=== PATIENT | female | born 1985 | race Caucasian/White ===

== ENCOUNTER 2021-12-04 10:55 | Emergency (ER) | payer OTHER, SELFPAY ==
[2021-12-04 11:10] VITALS: BP 119/74; PULSE 82; RESP 16; TEMP 36.6; O2SAT 100
--- NOTE | 2021-12-04 11:25 | ED.ABDPAIN ---
HPI - Abdominal Pain General Chief Complaint: Abdominal Pain Stated Complaint: right side abd pain Time Seen by Provider: 12/04/21 11:30 Source: patient and RN notes reviewed Mode of arrival: ambulatory Limitations: no limitations History of Present Illness HPI narrative: 36-year-old female presents with concern fo right lower quadrant abdominal pain. Reports the pain started on Wednesday and has been progressively worsening. Reports she thought throughout the week it could be gas, she reports she had some loose stool throughout the week. She reports pain is exacerbated by going from a sitting to a lying position, walking, when she sits on the toilet. She denies vomiting, dysuria, frequency, urgency, hematuria. She denies fever, body aches, chills, sweats. She has had a tubal ligation. She denies any other abdominal surgeries or procedures. MD elicited complaint: abdominal pain Related Data Home Medications Medication Instructions Recorded Confirmed bupropion HCl 150 mg tablet,12 hr 1 tablet PO BID 12/04/21 12/04/21 sustained-release cholecalciferol (vitamin D3) 25 2 cap PO DAILY 12/04/21 12/04/21 mcg (1,000 unit) capsule lisdexamfetamine 30 mg capsule 1 cap PO DAILY 12/04/21 12/04/21 (Vyvanse) Allergies Allergy/AdvReac Type Severity Reaction Status Date / Time No Known Allergies Allergy Verified 12/04/21 11:19 Review of Systems Review of Systems: CONSTITUTIONAL: Denies malaise, chills, sweats, or fever. ENT: Denies rhinorrhea, congestion, sinus pain, otalgia or sore throat. CARDIOVASCULAR: Denies chest pain, palpitations, or edema. RESPIRATORY: Denies cough or dyspnea. GASTROINTESTINAL: Reports right lower quadrant abdominal pain, loose stool. Denies nausea, vomiting, bloody, or mucous stools. GENITOURINARY: Denies dysuria or hematuria. MUSCULOSKELETAL: Denies myalgia. NEUROLOGIC: Denies headache. All systems reviewed & are unremarkable except as noted in HPI and below PMFSH Comments At time of signature, agree with nursing past medical, surgical, social and family history. There is no relevant family history pertinent to the presenting complaint Exam Narrative: GENERAL: Well-appearing, well-nourished, and in no acute distress. HEAD: Normocephalic, atraumatic. EYES: PERRLA, conjunctivae clear, and EOMI. ENT: Nares clear, turbinates pink, no rhinorrhea or epistaxis. Mucous membranes moist. Oropharynx without edema, erythema, or lesions. Tonsils not enlarged and without exudate. NECK: Supple. No lymphadenopathy CHEST: Speaks in full sentences. No respiratory distress. HEART: Regular rate and rhythm. ABDOMEN: Soft, obese, nondistended. Right lower quadrant tenderness, rebound tenderness noted. No guarding, or rigidity. No pulsatilla masses. Bowel sounds present in all four quadrants. No organomegaly. Negative Dooley?s sign. No periumbilical tenderness. No Supra public tenderness or distension. Good femoral pulses bilaterally. No hernia noted. Stretch rojas noted to the abdomen SKIN: Warm, dry, no rash. NEURO: Alert and oriented x3. PSYCH: Normal mood and affect Course Course Emergency Course: Patient is aware of, understands and agrees to be transferred to the emergency department. EMS transfer offered, patient refuses. Patient agrees to proceed directly to the emergency department. Portions of this record may have been created with voice recognition software Level of Care: Express Care Visit Vital Signs Vital signs: Reviewed. Transfer Transfered to: [facility] Transportation: Other (Private vehicle, EMS refused) Transfer rationale: Right lower abdominal pain, rebound tenderness Accepting physician: Don MDM - Abdominal Pain MDM Narrative Medical decision making narrative: Exam findings show for further evaluation emergency department; patient is non-toxic appearing and is in no distress. Differential Diagnosis Differential diagnosis: Likely abdominal pain, acute appendicitis, con
== END 2021-12-04 11:45 | disposition short-term general hospital (02) ==
PROVIDERS: Emergency Provider Nurse Practitioner
DX: R10.813 Right lower quadrant abdominal tenderness (principal)
CPT/HCPCS: 81003; 99202; G0463

== ENCOUNTER 2021-12-04 12:06 | Emergency (ER) | payer OTHER, SELFPAY ==
--- NOTE | ~2021-12-04 | US_ITS ---
EXAMINATION: US transvaginal DATE: 12/04/2021 16:30 INDICATION: Right lower quadrant pain and pelvic pain Comparison:No prior studies for comparison. TECHNIQUE: Multiple transabdominal and endovaginal sonographic images of the pelvis performed. FINDINGS: The uterus measures 9.4 x 5.8 x 4.9 cm. The endometrial complex measures 8.7 cm. The right ovary measures 2.4 x 1.9 x 1.5 cm and the left ovary measures 2.3 x 1.3 x 1.3 cm. There ar e small follicles in each ovary. Normal doppler signal in both ovaries. There is no free fluid in the pelvis. There are no abnormal masses seen on either side. IMPRESSION: 1. Endometrial thickening measuring 1.7 cm. Reviewed, dictated and finalized at location [facility].
--- NOTE | ~2021-12-04 | CT_ITS ---
EXAMINATION: CT abdomen pelvis wo con DATE: 12/04/2021 15:14 INDICATION: Right upper quadrant abdominal pain TECHNIQUE: Computed tomography (CT) of the abdomen and pelvis was performed without intravenous contr ast. Automated exposure control and iterative reconstruction technique were employed. Exam dose: 114 6.05 mGy-cm total exam DLP. COMPARISON: None. FINDINGS: Minimal discoid atelectasis or scarring in the medial right lower lobe base. The lung base s are clear of infiltrate or consolidation. No pleural effusion. Normal heart size. No pericardial effusion. Moderately large sliding hiatal hernia. The liver, gallbladder, bile ducts, spleen, pancreas, pancreatic duct, and adrenal glands and kidneys are unremarkable on this limited noncontrast examination. There is minimal atherosclerotic calcification and normal caliber of the abdominal aorta. No intraper itoneal or retroperitoneal or pelvic mass lesion or adenopathy or ascites. The uterus, adnexal areas and urinary bladder are unremarkable. Normal appendix. No bowel obstruction or intraperitoneal free air. Left parasagittal ventral abdominal wall scar is noted. Small fat-containing umbilical hernia Status post posterior and interbody surgical spinal fusion at L4-5. IMPRESSION: Moderately large sliding hiatal hernia Normal appendix No gallbladder wall thickening or pericholecystic fluid or fat stranding is detected. Reviewed, dictated and finalized at [facility]. Reviewed, dictated and finalized at location [facility]. IMPRESSION: Moderately large sliding hiatal hernia Normal appendix No gallbladder wall thickening or pericholecystic fluid or fat stranding is det ected.
--- NOTE | ~2021-12-04 | XR_ITS ---
XR abdomen/kub 1V DATE: 12/04/2021 15:23 INDICATION: Right upper quadrant abdominal pain TECHNIQUE: 2 AP views COMPARISON: 12/14/[address] abdomen pelvis FINDINGS: Status post posterior and anterior surgical fusion at L4-5. No evidence of bowel obstructio n. The psoas shadows are intact. No visceromegaly is evident. IMPRESSION: No significant abnormality Reviewed, dictated and finalized at [facility]. Reviewed, dictated and finalized at location [facility]. IMPRESSION: No significant abnormality
[2021-12-04 12:07] VITALS: BP 130/84; PULSE 89; RESP 16; TEMP 36.4; O2SAT 99
--- NOTE | 2021-12-04 12:11 | PC.NURSE ---
UA done at urgent care per pt.
[2021-12-04 12:17] LABS: Basophils Percent Auto 0.3 % (0.2-1.2); Eosinophils Absolute Auto 0.1 K/mm3 (0-0.3); Eosinophils Percent Auto 1.1 % (0-4.4); Hematocrit 43.4 % (37.0-47.0); Hemoglobin 14.1 g/dL (12.0-15.0); Immature Granulocyte Absolute 0.02 K/mm3 (0.00-0.031); Immature Granulocyte Percent A 0.2 % (0-0.5); Lymphocytes Absolute Auto 2.49 K/mm3 (0.9-3.2); Lymphocytes Percent Auto 27.9 % (18.3-44.2); Mean Corpuscular HGB Conc 32.5 g/dl (32-36); Mean Corpuscular Hemoglobin 29.2 pg (26-34); Mean Corpuscular Volume 89.9 fl (80-100); Mean Platelet Volume 9.9 fl (7.4-10.4); Monocytes Absolute Auto 0.5 K/mm3 (0.1-0.6); Monocytes Percent Auto 5.6 % (2.6-8.5); Neutrophils Absolute Auto 5.8 K/mm3 (1.3-6.7); Neutrophils Percent Auto 64.9 % (45.5-73.1); Platelet Count Result 241 k/mm3 (150-375); Red Blood Count 4.83 M/mm3 (4.2-5.4); Red Cell Distribution Width 12.4 % (11.5-14.5); White Blood Count 8.9 K/mm3 (4.5-10.0)
[2021-12-04 12:28] LABS: Alanine Aminotransferase 20 U/L (6-35); Albumin Level 4.1 g/dL (3.5-5.1); Alkaline Phosphatase 64 U/L (38-126); Anion Gap 5 mmol/L (8-16); Aspartate Amino Transferase 20 U/L (14-36); Bilirubin,Total 0.5 mg/dL (0.2-1.3); Blood Urea Nitrogen 11 mg/dL (7-17); Calcium 8.5 mg/dL (8.4-10.2); Carbon Dioxide 26 mmol/L (22-30); Chloride 106 mmol/L (98-107); Estimated CRCL calculation 106 ml/min; Estimated Glomerular Filt Rate > 60; Glucose 93 mg/dL (65-110); Lipase 94 U/L (23-300); Potassium 3.9 mmol/L (3.4-5.0); Sodium 137 mmol/L (137-145)
[2021-12-04 15:00] VITALS: PULSE 84; RESP 14; O2SAT 98
[2021-12-04 15:30] VITALS: BP 115/88; PULSE 82; RESP 14; O2SAT 98
[2021-12-04 15:47] LABS: Appearance Urine Cloudy (Clear); Bilirubin Urine Negative (Negative); Blood Urine Negative (Negative); Color Urine Yellow (Yellow); Glucose Urine UA Negative (Negative); Ketones Urine Negative (Negative); Leukocyte Esterase Ur Negative LEU/UL (Negative); Nitrate Urine Negative (Negative); Protein Urine Negative (Negative); Specific Grav Ur >= 1.030 (1.001-1.035); Urobilinogen Urine 0.2 mg/dL (<2.0); pH Urine 5.5 (5.0-9.0)
[2021-12-04] MEDS: SODIUM CHLORIDE 0.9% IV 1,000 ML 999 ML IV CONT (15:50)
[2021-12-04 15:54] LABS: Bacteria Urine Trace /hpf; Mucus Urine Rare /lpf; RBC Urine 0-2 /hpf (0-2); Squamous Epithelial Cell Urine Many /hpf (Few); WBC Urine 0-3 /hpf
[2021-12-04 16:08] LABS: Add Urine Microscopic? YES
[2021-12-04 16:30] VITALS: BP 125/64; PULSE 82; RESP 14; O2SAT 97
[2021-12-04] MEDS: KETOROLAC 30 MG/ML VIAL (*BKC) IV PUSH (16:37)
[2021-12-04 17:10] VITALS: BP 120/87; PULSE 65; RESP 14; O2SAT 97
--- NOTE | 2021-12-04 18:54 | ED.ABDPAIN ---
HPI - Abdominal Pain General Chief Complaint: Abdominal Pain Stated Complaint: from UC, RLQ pain Time Seen by Provider: 12/04/21 14:11 Source: patient Mode of arrival: ambulatory Limitations: no limitations History of Present Illness HPI narrative: 36-year-old female sent today from urgent care with complaints of intermittent right lower quadrant pain for the past 3 days. Patient denies any previous abdominal surgeries. Patient denies nausea or vomiting. Patient denies fevers. Patient denies any history of ovarian cysts. Related Data Home Medications Medication Instructions Recorded Confirmed bupropion HCl 150 mg tablet,12 hr 1 tablet PO BID 12/04/21 12/04/21 sustained-release cholecalciferol (vitamin D3) 25 2 cap PO DAILY 12/04/21 12/04/21 mcg (1,000 unit) capsule lisdexamfetamine 30 mg capsule 1 cap PO DAILY 12/04/21 12/04/21 (Vyvanse) Allergies Allergy/AdvReac Type Severity Reaction Status Date / Time No Known Allergies Allergy Verified 12/04/21 15:03 Review of Systems Review of Systems: CONSTITUTIONAL: Denies fever, chills, or sweats. EYES: Denies visual changes, redness, or discharge. ENT: Denies rhinorrhea, congestion, sore throat, or otalgia. CARDIOVASCULAR: Denies chest pain, palpitations, or edema. RESPIRATORY: Denies cough or dyspnea. GASTROINTESTINAL: Intermittent right lower quadrant pain. Denies nausea, vomiting, or diarrhea. GENITOURINARY: Denies dysuria or hematuria. SKIN: Denies rash or itching. MUSCULOSKELETAL: Denies back pain, joint pain, or myalgia. NEUROLOGIC: Denies headache, numbness, dizziness, or weakness. PSYCHIATRIC: Denies anxiety or depression. Exam Narrative: GENERAL: Well-appearing, well-nourished, and in no acute distress. HEAD: Normocephalic, atraumatic. EYES: PERRLA and EOMI. NECK: Supple. No adenopathy or masses. No carotid bruits or JVD CHEST: Clear to auscultation. No respiratory distress. No wheezes rales or rhonchi HEART: Regular rate and rhythm. No murmur heard. Normal peripheral pulses. ABDOMEN: Soft, nontender, nondistended, normal active bowel sounds. EXTREMITIES: Normal range of motion. No edema. SKIN: Warm, dry, no rash. NEURO: No focal deficits. Alert and oriented x3. PSYCH: Normal mood and affect. Course Course Emergency Course: Patient with minimal improvement after IV fluids and medication. Results discussed with patient. Patient discharged home with plan follow-up with primary or return with new or worsening symptoms. Vital Signs Vital signs: Vital Signs Temperature 36.4 C 12/04/21 12:07 Pulse Rate 89 12/04/21 12:07 Respiratory Rate 16 12/04/21 12:07 Blood Pressure 130/84 12/04/21 12:07 Pulse Oximetry 99 12/04/21 12:07 Oxygen Delivery Room Air 12/04/21 12:07 Temperature 36.4 C 12/04/21 12:07 Pulse Rate 65 12/04/21 17:10 Respiratory Rate 14 12/04/21 17:10 Blood Pressure 120/87 12/04/21 17:10 Pulse Oximetry 97 12/04/21 17:10 Oxygen Delivery Room Air 12/04/21 12:07 MDM - Abdominal Pain MDM Narrative Medical decision making narrative: 36-year-old female HPI as noted. WBCs 8.9 hemoglobin 14.1, sodium 137, potassium 3.9, BUN 11, GFR greater than 60. Urine without signs of infection, transvaginal ultrasound shows no acute process. Abdominal CT shows no acute process, no appendicitis. Patient discharged home instructed to follow-up with primary for further evaluation and management. Also instructed to return with any new or worsening symptoms. Lab Data Result diagrams: 12/04/21 12:12 12/04/21 12:12 Labs: Lab Results 12/04/21 12/04/21 12/04/21 Range/Units 12:12 12:12 15:37 WBC 8.9 (4.5-10.0) K/mm3 RBC 4.83 (4.2-5.4) M/mm3 Hgb 14.1 (12.0-15.0) g/dL Hct 43.4 (37.0-47.0) % MCV 89.9 (80-100) fl MCH 29.2 (26-34) pg MCHC 32.5 (32-36) g/dl RDW 12.4 (11.5-14.5) % Plt Count 241 (150-375) k/mm3 MPV 9.9 (7.4-1
== END 2021-12-04 17:10 | disposition home or self-care (01) ==
PROVIDERS: Emergency Medicine; Emergency Provider Nurse Practitioner Family
DX: R10.31 Right lower quadrant pain (principal)
CPT/HCPCS: 36415; 74018; 74176; 76830; 80053; 81001; 81025; 83690; 85025; 96361; 96374; 99284; J1885; J7030

== ENCOUNTER 2023-03-19 13:41 | Emergency (ER) | payer OTHER, SELFPAY ==
[2023-03-19 13:53] VITALS: BP 112/72; PULSE 84; RESP 18; TEMP 36.2; O2SAT 98
--- NOTE | 2023-03-19 14:24 | ED.URI ---
HPI - URI/Sore Throat General Chief Complaint: Upper Respiratory Infection Stated Complaint: Sore Throat Time Seen by Provider: 03/19/23 14:24 Source: patient, RN notes reviewed and old records reviewed Mode of arrival: ambulatory Limitations: no limitations History of Present Illness HPI Narrative: 37-year-old female presents to the [facility] with complaints of a sore throat x 3 days. To can at home COVID test which she reports negative. Confirmed for strep and [id number]. Reports possible blisters posterior pharynx Onset (ago): day(s) (3) Related Data Home Medications Medication Instructions Recorded Confirmed cholecalciferol (vitamin D3) 25 2 cap PO DAILY 12/04/21 03/19/23 mcg (1,000 unit) capsule Allergies Allergy/AdvReac Type Severity Reaction Status Date / Time No Known Allergies Allergy Verified 11/30/22 07:40 Review of Systems Review of Systems: All systems reviewed & are unremarkable except as noted in HPI and below Constitutional: Constitutional: Reports no additional constitutional complaints Eyes: Eyes: Reports no additional eye complaints ENT: Reports as per HPI and Reports sore throat Cardiovascular: Cardiovascular: Reports no additional cardiovascular complaints, Denies chest pain and Denies dyspnea Respiratory: Respiratory: Reports no additional respiratory complaints, Denies chest congestion, Denies cough and Denies dyspnea Gastrointestinal: Gastrointestinal: Reports no additional gastrointestinal complaints, Denies abdominal pain, Denies nausea and Denies vomiting Musculoskeletal: Musculoskeletal: Reports no additional musculoskeletal complaints Integumentary/Breasts: Skin/Breast: Reports system reviewed and no additional complaints, except as docu Neurologic: Reports system reviewed and no additional complaints, except as documented Psychiatric: Psychiatric: Reports no additional psychiatric complaints Allergic/Immunologic: Allergic/Immunologic: Reports no additional allergic/immunologic complaints [facility]LY [facility] Past Medical History Medical History BMI 38.0-38.9,adult Need for lipid screening Surgical History Surgical History (Updated 11/30/22 @ 08:11 by Viki Alberto) History of loop electrical excision procedure (LEEP) History of tubal ligation Social History Social History Smoking status: Former smoker Alcohol intake: current Substance use: never Lack of Transportation: No Lack of Food: Never True Current Housing: I Have Housing Concerned About Future Housing: No Difficulty Paying Gas/Electric Bills: No Difficulty Paying for Meds: No Currently Unemployed: No Education: High School Diploma/GED Difficulty w/ Childcare or Family Care: No Comments At the time of my signature, I reviewed and agree with the nursing past medical, surgical, social, and family history. There is no relevant family history pertinent to the patient complaint. Exam Const: General: cooperative, healthy appearing, comfortable, no acute distress, well developed, alert and well nourished Nutritional Appearance: well nourished Orientation/consciousness: patient oriented x3 Limitations: no limitations HENMT: Head: normal to inspection Ears: hearing grossly normal bilaterally, external ears normal, TM's normal bilaterally, EAC's normal and mastoids normal Face/Nose/Sinus: Normal external nose present, Normal nares present, Normal nasal mucous membranes and turbinates present, normal facial exam and face symmetric Face and sinus: normal facial exam and face symmetric Mouth: Yes Normal oral and palatal mucosa present, Yes lip normal and Yes moist mucous membranes Throat: posterior oropharynx normal and uvula midline Eyes: General: appearance normal, both eyes and all related structures Alignment and Position: alignment normal Periorbital: periorbital findings normal
== END 2023-03-19 14:45 | disposition home or self-care (01) ==
PROVIDERS: Emergency Provider Nurse Practitioner; PCP Family Medicine
DX: J02.9 Acute pharyngitis, unspecified (principal); Z87.891 Personal history of nicotine dependence
CPT/HCPCS: 87081; 87880; 99213; G0463

== ENCOUNTER 2023-09-11 07:54 | Outpatient (CLI) | payer OTHER, SELFPAY ==
[2023-09-11 09:01] LABS: Anion Gap 4 mmol/L (8-16); Blood Urea Nitrogen 14 mg/dL (7-17); Carbon Dioxide 29 mmol/L (22-30); Chloride 104 mmol/L (98-107); Estimated Glomerular Filt Rate > 60; Glucose 90 mg/dL (65-110); Sodium 137 mmol/L (137-145)
== END 2023-09-11 07:55 | disposition home or self-care (01) ==
LOC: ANHLAB 07:56
PROVIDERS: PCP Family Medicine; Visit Provider Physician Assistant Medical
DX: E83.51 Hypocalcemia (principal); R63.5 Abnormal weight gain; Z68.41 Body mass index [BMI] 40.0-44.9, adult
CPT/HCPCS: 36415; 80048; 84443

== ENCOUNTER 2023-09-14 14:05 | Emergency (ER) | payer OTHER, SELFPAY ==
--- NOTE | ~2023-09-14 | CT_ITS ---
. EXAMINATION: CT abdomen pelvis wo con DATE: 09/14/2023 15:59 INDICATION: Low back pain radiating to right flank. Right hip and lower extremity pain. TECHNIQUE: Computed tomography (CT) of the abdomen and pelvis was performed without intravenous contr ast. Automated exposure control and iterative reconstruction technique were employed. Exam dose: 132 6.06 mGy-cm total exam DLP. COMPARISON: 12/03/2021 CT abdomen pelvis FINDINGS: Chronic mild discoid atelectasis or scarring in the medial right lung base adjacent to the large sliding hiatal hernia. The lung bases are otherwise clear. Normal heart size. No pericardial or pleural effusion. The liver, gallbladder, bile ducts, pancreas, pancreatic duct, spleen, and adrenal glands and kidneys appear unremarkable on this limited noncontrast examination. No urinary tract calculus or hydrourete ronephrosis. The urinary bladder, uterus and adnexal areas are unremarkable. Normal caliber and minimal atherosclerotic calcification of the abdominal aorta. No intraperitoneal o r retroperitoneal or pelvic mass lesion or adenopathy or ascites. Normal appendix. No bowel obstruction, bowel wall thickening, pneumatosis or intraperitoneal free air . There is a linear surgical scar in the left parasagittal lower anterior abdominal wall. Small fat-con taining umbilical hernia. Status post anterior, interbody and posterior surgical fusion at L4-5. No hardware fracture or displa cement is evident. No suspicious osteolytic or osteoblastic lesions. IMPRESSION: Status post anterior, interbody and posterior surgical fusion at L5-S1 Normal appendix Large sliding hiatal hernia Reviewed, dictated and finalized at [facility]. Reviewed, dictated and finalized at location L. IMPRESSION: Status post anterior, interbody and posterior surgical fusion at L 5-S1 Normal appendix Large sliding hiatal hernia
[2023-09-14 14:36] VITALS: BP 115/65; PULSE 104; RESP 20; TEMP 36.4; O2SAT 98
--- NOTE | 2023-09-14 14:42 | ED.BACK ---
HPI - Back Pain/Injury General Chief Complaint: Back Pain/Injury <RYAN Puente Last Filed: 09/16/23 09:15> Stated Complaint: lower R. back pain <RYAN Puente Last Filed: 09/16/23 09:15> Time Seen by Provider: 09/14/23 14:42 <RYAN Puente Last Filed: 09/16/23 09:15> Focused HPI: Patient is a 37 y/o female, with PMH of L4-5 fusion 5 years ago and kidney stones, who presents to the ED with c/o lower back pain. Patient reports having pain for last few days. 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 Pain is worse with movement in certain positions. Pain radiates from her lower back into her right flank region, into right hip region, intermittently down her right lower extremity. She has been taking naproxen and resting without improvement. She has not taken anything for pain today. Denies numbness/tingling, saddle anesthesia, incontinence, abdominal pain, N/V. GENERAL: Well-appearing, morbidly obese with BMI of 41.5, and in no acute distress. HEAD: Normocephalic, atraumatic. CHEST: Clear to auscultation. ?No respiratory distress. HEART: Regular rate and rhythm.? MSK: Positive midline spinal tenderness throughout lumbar region, extending into right paraspinal musculature. No palpable deformities or bony step-offs. ABD: No significant tenderness. No CVA tenderness to percussion. NEURO: ?Alert and oriented x3. Patient screened in triage and initial orders placed.? ?Additional care and disposition to be based upon?diagnostic testing and treatment. <RYAN Puente Last Filed: 09/16/23 09:15> Source: patient <RYAN Puente Last Filed: 09/16/23 09:15> Mode of arrival: ambulatory <RYAN Puente Last Filed: 09/16/23 09:15> Limitations: no limitations <Jenny Luevano PA-C - Last Filed: 09/16/23 09:15> Related Data Allergies/Adverse Reactions: Allergies Allergy/AdvReac Type Severity Reaction Status Date / Time No Known Allergies Allergy Verified 09/14/23 14:44 <Jenny Luevano PA-C - Last Filed: 09/16/23 09:15> Review of Systems Review of Systems: All systems reviewed & are unremarkable except as noted in HPI and below <Miguel Farmer MD - Last Filed: 09/16/23 21:38> Exam Narrative: APPEARANCE: Well appearing, no pain, no distress, well-nourished. HEAD: normocephalic, atraumatic. EYES: PERRLA/EOMI, conjunctivae clear. NOSE: Normal no drainage EARS:TMS clear with good light reflex. THROAT: Pharynx clear, no exudate. NECK: Supple. No adenopathy, no masses. RESPIRATORY: Airway patent, respirations nonlabored. Clear to auscultation bilaterally, no rales, rhonchi, wheezing. CARDIOVASCULAR: Regular rate and rhythm without murmurs rubs or gallops. ABDOMINAL: Soft, nontender, nondistended, normal bowel sounds MUSCULOSKELETAL: Moves all extremities. Strength/ROM intact, No edema, No calf tenderness. NEURO: Alert. Cranial nerves II through XII intact. Good gait. Good coordination SKIN: Warm, dry. Normal Color PSYCHIATRIC: Normal affect/mood. <Miguel Farmer MD - Last Filed: 09/16/23 21:38> Course Course Emergency Course: Patient did feel improved with treatment. <Miguel Farmer MD - Last Filed: 09/16/23 21:38> Vital Signs Vital signs: Vital Signs Temperature 97.6 F 09/14/23 14:36 Pulse Rate 104 H 09/14/23 14:36 Respiratory Rate 20 09/14/23 14:36 Blood Pressure 115/65 09/14/23 14:36 Pulse Oximetry 98 09/14/23 14:36 Oxygen Delivery Room Air 09/14/23 14:36 Temperature 98.2 F 09/14/23 18:23 Pulse Rate 76 09/14/23 18:23 Respiratory Rate 16 09/14/23 18:23 Blood Pressure 122/73 09/14/23 18:23 Pulse Oximetry 100 09/14/23 18:23 Oxygen Delivery Room Air 09/14/23 14:36 <Jenny Luevano PA-C - Last Filed: 09/16/23 09:15>
[2023-09-14] MEDS: ACETAMINOPHEN 500 MG TABLET 1000 MG PO (15:08)
[2023-09-14] MEDS: CYCLOBENZAPRINE HCL 5 MG TABLET PO (15:09)
[2023-09-14] MEDS: methylPREDNISolone SOD SUCC 125 MG VIAL IM (15:09)
--- NOTE | 2023-09-14 15:53 | PC.NURSE ---
pt declined urine test prior to CT because the had tubal ligation and are certain they are not . CT staff notified
[2023-09-14 17:35] VITALS: BP 117/76; PULSE 71; RESP 15; O2SAT 100
[2023-09-14] MEDS: HYDROcodone/acetaminophen (*CRX) 5-325 MG TABLET 1 TAB PO (18:04)
[2023-09-14] MEDS: CYCLOBENZAPRINE HCL 10 MG TABLET PO (18:04)
[2023-09-14 18:23] VITALS: BP 122/73; PULSE 76; RESP 16; TEMP 36.8; O2SAT 100
== END 2023-09-14 18:24 | disposition home or self-care (01) ==
PROVIDERS: Emergency Provider Emergency Medicine; PCP Physician Assistant Medical
DX: M54.41 Lumbago with sciatica, right side (principal); Z87.442 Personal history of urinary calculi; Z98.1 Arthrodesis status
CPT/HCPCS: 74176; 96372; 99284; A9270; J2930

== ENCOUNTER 2024-04-14 08:08 | Outpatient (CLI) | payer OTHER, SELFPAY ==
[2024-04-14 09:13] LABS: Anion Gap 8 mmol/L (4-12); Blood Urea Nitrogen 13 mg/dL (7-17); Carbon Dioxide 25 mmol/L (22-30); Chloride 104 mmol/L (98-107); Cholesterol 232 mg/dL (0-200); Estimated Glomerular Filt Rate > 60; Glucose 95 mg/dL (65-110); HDL Direct 61 mg/dL; Potassium 3.4 mmol/L (3.4-5.0); Sodium 137 mmol/L (137-145); Triglycerides 99 mg/dL (<150)
[2024-04-14 09:24] LABS: LDL Cholesterol Direct 133 mg/dL
== END 2024-04-14 08:09 | disposition home or self-care (01) ==
PROVIDERS: PCP Physician Assistant Medical; Visit Provider Physician Assistant Medical
DX: Z13.220 Encounter for screening for lipoid disorders (principal); R63.5 Abnormal weight gain; E83.51 Hypocalcemia
CPT/HCPCS: 36415; 80048; 80061

== ENCOUNTER 2024-05-01 07:33 | Outpatient (CLI) | payer OTHER, SELFPAY ==
[2024-05-01 08:06] LABS: Alanine Aminotransferase 16 U/L (6-35); Albumin Level 4.2 g/dL (3.5-5.1); Alkaline Phosphatase 68 U/L (38-126); Aspartate Amino Transferase 24 U/L (14-36); Bilirubin,Total 0.4 mg/dL (0.2-1.3)
== END 2024-05-01 07:34 | disposition home or self-care (01) ==
PROVIDERS: PCP Physician Assistant Medical; Visit Provider Physician Assistant Medical
DX: R63.5 Abnormal weight gain (principal); Z68.41 Body mass index [BMI] 40.0-44.9, adult
CPT/HCPCS: 36415; 80076